=== PATIENT | female | born 1955 | race Caucasian/White ===

== ENCOUNTER 2017-06-19 02:44 | Emergency (ER) | payer OTHER ==
[2017-06-19] MEDS: ALPRAZOLAM 0.25 MG TAB PO (03:55)
[2017-06-19] MEDS: LORAZEPAM 2 MG INJ IM (03:55)
== END 2017-06-19 06:46 | disposition home or self-care (01) ==
LOC: E/R 06:46
DX: F10.129 Alcohol abuse with intoxication, unspecified (principal); F41.9 Anxiety disorder, unspecified
CPT/HCPCS: 96372; 99284-25; J2060